=== PATIENT | male | born 1985 | race Caucasian/White ===

== ENCOUNTER 2020-04-25 19:48 | Inpatient (IN) | payer MEDICAID, OTHER ==
[~2020-04-25] VITALS: Ht 167.6 cm; Wt 80.2 kg
[2020-04-25] MEDS ORDERED: SODIUM CHLORIDE 0.9% 1,000 ML IVB ONE (20:03)
[2020-04-25] MEDS ORDERED: LORazepam 2MG/ML-1ML VIAL IV ONE ×3 (20:15→23:15)
[2020-04-25 21:25] LABS: Urine Bacteria NONE SEEN /hpf (None Seen); Urine Blood 1+ /uL (Negative); Urine Hyaline Cast FEW /lpf (0 - 2); Urine Mucus FEW (None Seen); Urine Specific Gravity 1.015 (1.001-1.035); Urine Sperm PRESENT /hpf (None Seen); Urine WBC 3 /hpf (0 - 3)
[2020-04-25 21:36] LABS: Basophils # (auto) 0.1 10 ^3/uL (0-0.2); Basophils % (auto) 0.9 % (0.0-2.0); Eosinophils # (auto) 0 10 ^3/uL (0-0.8); Hemoglobin 15.4 g/dL (13.5-17.5); Lymphocytes # (auto) 0.9 10 ^3/uL (0.4-5.4); Lymphocytes % (auto) 7.2 % (10.0-50.0); Mean Corpuscular Hemoglobin 30.5 pg (28.0-32.0); Mean Corpuscular Hgb Conc. 34.3 g/dL (32.0-36.0); Mean Corpuscular Volume 89.1 fL (80.0-100.0); Monocytes # (auto) 1.3 10 ^3/uL (0-1.3); Monocytes % (auto) 9.9 % (0.0-12.0); Neutrophils # (auto) 10.8 10 ^3/uL (1.6-8.6); Nucleated Red Blood Cells % 0.1 %; Platelet Count (auto) 265 10^3/uL (140-450); Red Blood Cells 5.05 10^6/uL (4.5-5.90); Red Cell Distribution Width 13.6 % (11.8-14.3); White Blood Cell 13.1 10^3/uL (4.4-10.8)
[2020-04-25 21:38] LABS: Amphetamine Screen, Urine POSITIVE (NEGATIVE); Barbiturate Scree,Urine NEGATIVE (NEGATIVE); Benzodiazephine Screen, Urine NEGATIVE (NEGATIVE); Cannabinoid Screen, Urine NEGATIVE (NEGATIVE); Cocaine Screen, Urine NEGATIVE (NEGATIVE); Opiate Scree,Urine NEGATIVE (NEGATIVE); Phencyclidine Screen, Urine NEGATIVE (NEGATIVE)
[2020-04-25 21:55] LABS: Alanine Aminotransferase 26 U/L (16-61); Albumin 4.8 g/dL (3.4-5.0); Anion Gap 12 (5-15); Blood Urea Nitrogen 29 mg/dL (7-18); Calcium 9.8 mg/dL (8.5-10.1); Carbon Dioxide 22 mmol/L (21-32); Chloride 99 mmol/L (98-107); Glucose 110 mg/dL (74-106); Magnesium 2.4 mg/dL (1.6-2.6); Potassium 3.6 mmol/L (3.5-5.1); Sodium 133 mmol/L (136-145)
[2020-04-25 22:12] LABS: Alkaline Phosphatase 80 U/L (45-117); Aspartate Aminotransferase 46 U/L (15-37); BUN/Creatinine Ratio 10.5; Bilirubin, Total 1.6 mg/dL (0.2-1.0); Creatine Kinase IFCC 2592 U/L (39-308); GFR African American 34 mL/min; GFR Non-African American 28 mL/min; Total Protein 8.4 g/dL (6.4-8.2)
[2020-04-25 22:41] LABS: Blood Alcohol < 3.0 mg/dL (0-5)
[2020-04-25] MEDS ORDERED: SODIUM CHLORIDE 0.9% 1,000 ML IV ONE ×2 (23:45)
[2020-04-26] MEDS ORDERED: LORazepam 2MG/ML-1ML VIAL IV ONE (01:30)
[2020-04-26 07:44] LABS: Chloride 106 mmol/L (98-107); Potassium 3.4 mmol/L (3.5-5.1); Sodium 137 mmol/L (136-145)
[2020-04-26 07:51] LABS: Alanine Aminotransferase 28 U/L (16-61); Albumin 3.7 g/dL (3.4-5.0); Alkaline Phosphatase 70 U/L (45-117); Anion Gap 4 (5-15); Aspartate Aminotransferase 75 U/L (15-37); BUN/Creatinine Ratio 17.9; Bilirubin, Total 1.7 mg/dL (0.2-1.0); Blood Alcohol < 3.0 mg/dL (0-5); Blood Urea Nitrogen 26 mg/dL (7-18); Calcium 8.2 mg/dL (8.5-10.1); Carbon Dioxide 27 mmol/L (21-32); GFR African American 71 mL/min; GFR Non-African American 59 mL/min; Glucose 93 mg/dL (74-106); Total Protein 7.1 g/dL (6.4-8.2)
[2020-04-26] MEDS ORDERED: HALOPERIDOL LACTATE 5 MG/ML INJ VIAL IM ONE (10:00)
[2020-04-26] MEDS ORDERED: SODIUM CHLORIDE 0.9% 1,000 ML IV ONE (13:15)
[2020-04-26] MEDS ORDERED: NITROGLYCERIN 0.4 MG SL TAB SL PRN (13:30)
[2020-04-26] MEDS ORDERED: POTASSIUM EFFERVESENT TAB 25 MEQ PO ONE (13:30)
[2020-04-26] MEDS ORDERED: OLANZapine 5 MG TAB PO ONE (13:30)
[2020-04-26] MEDS ORDERED: MORPHINE SULF INJ 2 MG/ML SYRINGE 1ML IV PRN (13:30)
[2020-04-26] MEDS: SODIUM CHLORIDE 0.9% 1,000 ML IV SCH ×2 (14:15→21:09)
[2020-04-27] MEDS: SODIUM CHLORIDE 0.9% 1,000 ML IV SCH ×3 (03:56→22:14)
[2020-04-27] MEDS: OLANZapine 5 MG TAB PO SCH (10:07)
[2020-04-27 10:30] VITALS: BP 101/49
--- NOTE | 2020-04-27 10:30 | NUR ---
Telemetry admit from ER GUS DUBOIS admitted to Telemetry unit after SBAR received. Patient oriented to josefina RAM RN, unit, room, bed, and unit policies regarding patient care and visiting hours. Patient now on continuous telemetry monitoring, tele box #69 and telemetry reading on arrival to unit is Sinus rhythm 65bpm. Patient placed on room air, weighed by bedscale and encouraged to call if they need something. All questions and concerns addressed, patient verbalized understanding.
--- NOTE | 2020-04-27 14:40 | NUR ---
Dr. Hardin at bed side assessing patient. New orders received and verified. Will implement.
[2020-04-27 14:46] LABS: Basophils # (auto) 0 10 ^3/uL (0-0.2); Basophils % (auto) 0.6 % (0.0-2.0); Eosinophils # (auto) 0.2 10 ^3/uL (0-0.8); Eosinophils % (auto) 4.6 % (0.0-7.0); Hematocrit 37.6 % (41.0-53.0); Hemoglobin 13.2 g/dL (13.5-17.5); Lymphocytes # (auto) 1.6 10 ^3/uL (0.4-5.4); Lymphocytes % (auto) 29.8 % (10.0-50.0); Mean Corpuscular Hemoglobin 31.2 pg (28.0-32.0); Mean Corpuscular Volume 89.2 fL (80.0-100.0); Monocytes # (auto) 0.4 10 ^3/uL (0-1.3); Monocytes % (auto) 7.1 % (0.0-12.0); Neutrophils # (auto) 3.1 10 ^3/uL (1.6-8.6); Neutrophils % (auto) 57.9 % (37.0-80.0); Nucleated Red Blood Cells % 0.1 %; Platelet Count (auto) 179 10^3/uL (140-450); Red Blood Cells 4.22 10^6/uL (4.5-5.90); Red Cell Distribution Width 13.6 % (11.8-14.3); White Blood Cell 5.3 10^3/uL (4.4-10.8)
--- NOTE | 2020-04-27 15:00 | NUR ---
Mercer catheter insertion Patient assessed and determined to be in need of mercer catheter. Order obtained from MD. Patient educated on catheter and reason for insertion. All questions answered. Mercer catheter 16 guage Bengali inserted with clean sterile technique. Patient tolerated well.
[2020-04-27 15:06] VITALS: BP 101/49
[2020-04-27 15:07] LABS: Potassium 4.3 mmol/L (3.5-5.1)
[2020-04-27 15:19] LABS: BUN/Creatinine Ratio 20.2; Bilirubin, Total 0.6 mg/dL (0.2-1.0); Calcium 7.9 mg/dL (8.5-10.1); Total Protein 5.9 g/dL (6.4-8.2)
[2020-04-27 17:00] VITALS: BP 105/61
--- NOTE | 2020-04-27 17:40 | NUR ---
Per home performance laborer patient refused trop lab repeat. Will try again around 20:30.
--- NOTE | 2020-04-27 19:38 | NUR ---
Opening Shift Note Received report and assumed care of patient. Patient is awake and alert. No signs or symptoms of distress noted. Instructed patient on plan of care and to call for assistance as needed. Sitter at bedside. Will continue to monitor.
[2020-04-27 22:00] VITALS: BP 101/46
--- NOTE | 2020-04-27 22:05 | NUR ---
IV removal/insertion 18g IV to the Left AC is reddened. Discontinued IV with clean technique, catheter tip fully intact. Pressure dressing applied to site. NOTE: Inserted 18g IV to the Right forearm. Patient tolerated well.
--- NOTE | 2020-04-28 00:08 | NUR ---
Changes in Heart Rhythm Telemetry strips show patient's heart rate in sinus arrhythmia. Patient's heart rate changes with beats with inverted P waves and beats with no P waves. Patient's vital signs within normal limits, patient denies any symptoms. Performed EKG, signed by . New order for cardiology consult, order read back and verified. Will carry out and continue to monitor.
[2020-04-28] MEDS: SODIUM CHLORIDE 0.9% 1,000 ML IV SCH ×5 (03:26→22:26)
[2020-04-28 05:00] VITALS: BP 110/66
[2020-04-28 06:01] LABS: Basophils # (auto) 0 10 ^3/uL (0-0.2); Basophils % (auto) 0.7 % (0.0-2.0); Eosinophils # (auto) 0.3 10 ^3/uL (0-0.8); Eosinophils % (auto) 5.8 % (0.0-7.0); Hematocrit 37.7 % (41.0-53.0); Lymphocytes # (auto) 1.7 10 ^3/uL (0.4-5.4); Lymphocytes % (auto) 33.1 % (10.0-50.0); Mean Corpuscular Hemoglobin 30.9 pg (28.0-32.0); Mean Corpuscular Hgb Conc. 34.5 g/dL (32.0-36.0); Mean Corpuscular Volume 89.7 fL (80.0-100.0); Monocytes # (auto) 0.4 10 ^3/uL (0-1.3); Monocytes % (auto) 6.8 % (0.0-12.0); Neutrophils # (auto) 2.8 10 ^3/uL (1.6-8.6); Neutrophils % (auto) 53.6 % (37.0-80.0); Nucleated Red Blood Cells % 0.1 %; Platelet Count (auto) 176 10^3/uL (140-450); Red Cell Distribution Width 13.6 % (11.8-14.3); White Blood Cell 5.2 10^3/uL (4.4-10.8)
[2020-04-28 06:16] LABS: Potassium 4.1 mmol/L (3.5-5.1)
[2020-04-28 06:38] LABS: Albumin 2.8 g/dL (3.4-5.0); BUN/Creatinine Ratio 19.5; Bilirubin, Total 0.4 mg/dL (0.2-1.0); Magnesium 2.2 mg/dL (1.6-2.6); Total Protein 5.6 g/dL (6.4-8.2)
--- NOTE | 2020-04-28 07:00 | NUR ---
Input and Output Total input: 4460ml Total output: 3700ml
[2020-04-28 09:00] VITALS: BP 101/65
[2020-04-28] MEDS: POTASSIUM CHL 20 Meq TABLET PO SCH (09:37)
[2020-04-28] MEDS: OLANZapine 5 MG TAB PO SCH (09:37)
[2020-04-28 13:00] VITALS: BP 97/57
--- NOTE | 2020-04-28 14:25 | NUR ---
Dr. Oviedo at bed side. New orders received. Will carry out
--- NOTE | 2020-04-28 15:52 | NUR ---
Mercer catheter dc'd Order to discontinue mercer catheter. Mercer dc'd with clean technique following deflation of balloon. Patient tolerated well with no complaints of pain. Continue care.
[2020-04-28 17:00] VITALS: BP 102/64
--- NOTE | 2020-04-28 19:40 | NUR ---
Opening Shift Note Received report and assumed care of patient. Patient is awake and alert. No signs or symptoms of distress noted, patient currently denies pain. Instructed patient on plan of care and to call for assistance as needed. Sitter at bedside. Will continue to monitor.
[2020-04-28 22:01] VITALS: BP 113/67
[2020-04-29] MEDS: SODIUM CHLORIDE 0.9% 1,000 ML IV SCH ×4 (03:54→15:45)
[2020-04-29 05:01] VITALS: BP 113/67
--- NOTE | 2020-04-29 06:29 | NUR ---
Leo Hospitalist Patient's potassium level 2.9. Leo Burnett, awaiting call back. Addendum: 04/29/20 at 0828 by AYO PEDROZA RN RN Incorrect Patient
[2020-04-29 06:40] LABS: Basophils # (auto) 0 10 ^3/uL (0-0.2); Basophils % (auto) 0.7 % (0.0-2.0); Eosinophils # (auto) 0.3 10 ^3/uL (0-0.8); Eosinophils % (auto) 6.1 % (0.0-7.0); Hemoglobin 13.1 g/dL (13.5-17.5); Lymphocytes # (auto) 1.9 10 ^3/uL (0.4-5.4); Lymphocytes % (auto) 36.3 % (10.0-50.0); Mean Corpuscular Hemoglobin 31.5 pg (28.0-32.0); Mean Corpuscular Hgb Conc. 35.5 g/dL (32.0-36.0); Mean Corpuscular Volume 88.8 fL (80.0-100.0); Monocytes # (auto) 0.3 10 ^3/uL (0-1.3); Neutrophils # (auto) 2.6 10 ^3/uL (1.6-8.6); Neutrophils % (auto) 50.9 % (37.0-80.0); Nucleated Red Blood Cells % 0.1 %; Platelet Count (auto) 181 10^3/uL (140-450); Red Blood Cells 4.16 10^6/uL (4.5-5.90); Red Cell Distribution Width 13.3 % (11.8-14.3); White Blood Cell 5.1 10^3/uL (4.4-10.8)
[2020-04-29 06:55] LABS: INR 1.01 (0.9-1.15); Partial Thromboplastin Time 25.4 sec (23.64-32.05)
[2020-04-29 07:00] LABS: Potassium 4.2 mmol/L (3.5-5.1)
[2020-04-29 07:11] LABS: Albumin 2.9 g/dL (3.4-5.0); Bilirubin, Total 0.4 mg/dL (0.2-1.0); Magnesium 2.2 mg/dL (1.6-2.6); Phosphorus 3.3 mg/dL (2.5-4.90); Total Protein 5.7 g/dL (6.4-8.2)
[2020-04-29 09:00] VITALS: BP 104/59
[2020-04-29] MEDS: POTASSIUM CHL 20 Meq TABLET PO SCH (10:31)
[2020-04-29] MEDS: OLANZapine 5 MG TAB PO SCH (10:31)
[2020-04-29 13:00] VITALS: BP 107/71
--- NOTE | 2020-04-29 14:22 | NUR ---
Nutrition Assessment Notes Please refer to link for full assessment notes. Est Energy needs: 6058-2763 kcals (20-23 kcal/kgBW) Est Protein needs: 63-79 gms/day (0.8-1.0 gm/kgBW) Will continue to monitor and reassess prn. Addendum: 04/29/20 at [address] Amended: Links added.
--- NOTE | 2020-04-29 16:58 | NUR ---
Assessment Patient is a 34-year-old male who is alert and oriented. Per patient he is homeless and has been living in the streets. Patient stated he has been contacting different homeless chcf and has no luck being placed. Discussed with patient how to obtain service through the [facility] and local [facility]. Provided patient with community resources and offered him with taxi voucher within 30 miles and patient agreed. Patient accepted resources. Patient stated he will make his own arrangements using the resources provided. Provided information to clothes closet and meal prior to discharge. Completed homeless assessment and patient signed homeless waiver. Informed MONCHO Morrison. Addendum: 04/29/20 at 1700 by NIEVES FAN Amended: Links added.
[2020-04-29 17:00] VITALS: BP 105/66
[2020-04-29 21:43] VITALS: BP 111/83
--- NOTE | 2020-04-30 00:37 | NUR ---
PATIENT BEGAN TO BECOME AGITATED. HE STATED THAT I KNOW I HAVE PSYCHOSIS AND ITS HARD FOR ME TO BELIEVE PEOPLE AND WHAT THEY TELL ME. HE ASKED REPEATEDLY AND I GOING TO GROUP HOME. I EXPLAINED TO HIM THAT HE WILL NOT BE GOING TO GROUP HOME HE HAS DONE NOTHING TO THIS POINT TO GO TO GROUP HOME. HE LOPEZ ALREADY TAKEN OFF HIS TELE BOX AND WAS ASKING TO TAKE OFF HIS IV FLUIDS. I WAS ABLE TO GET HIM TO UNDERSTAND THAT HE WILL NOT BE GOING TO GROUP HOME. HE AGREED TO PUT THE IV FLUIDS BACK ON WELL THE TELE BOX. WILL CONTINUE TO MONITOR.
[2020-04-30] MEDS: SODIUM CHLORIDE 0.9% 1,000 ML IV SCH ×2 (01:45→11:45)
[2020-04-30 05:00] VITALS: BP 100/62
[2020-04-30 08:30] VITALS: BP 109/75
--- NOTE | 2020-04-30 09:30 | NUR ---
CLOTHES PROVIDED PATIENT WITH A SET OF CLOTHING, SHOES, SOCKS AND A SWEATER.
[2020-04-30] MEDS: OLANZapine 5 MG TAB PO SCH (10:00)
--- NOTE | 2020-04-30 10:45 | NUR ---
BUS PASS PATIENT REQUESTED BUS PASS FOR [facility]; REFUSED A TAXI.
--- NOTE | 2020-04-30 11:30 | NUR ---
FOOD PATIENT REQUESTED A SANDWICH AND JUICE UPON DISCHARGE THIS RN TO PROVIDE.
--- NOTE | 2020-04-30 13:22 | NUR ---
Discharge instructions given as ordered. Encourage to follow up with PMD as instructed. All questions and concerns addressed. Patient verbalized understanding. Medication reconciliation form completed and copy given to patient. IV removed with catheter intact, pressure dressing applied, Telemetry unit returned to ICU. [facility] and [facility]. No distress noted at time of departure. Addendum: 04/30/20 at 1326 by JUAN MEDRANO RN PATIENT REFUSED TO WAIT FOR DISCHARGE TO PRINT AND DID NOT SIGN FOR PAPERWORK.
== END 2020-04-30 14:30 | disposition home or self-care (01) | DRG 812 ==
LOC: ER 19:50 → TELE 19:51 → TELE-WESTW 04-27 12:30
PROVIDERS: ADMIT Internal Medicine; ATTEND Internal Medicine
DX: T43.621A Poisoning by amphetamines, accidental (unintentional), initial encounter (principal); N17.0 Acute kidney failure with tubular necrosis; G92 Toxic encephalopathy; M62.82 Rhabdomyolysis; R65.10 Systemic inflammatory response syndrome (SIRS) of non-infectious origin without acute organ dysfunction; F20.9 Schizophrenia, unspecified; E87.6 Hypokalemia; F10.10 Alcohol abuse, uncomplicated; F41.0 Panic disorder [episodic paroxysmal anxiety]; F17.210 Nicotine dependence, cigarettes, uncomplicated; D72.829 Elevated white blood cell count, unspecified; Z03.818 Encounter for observation for suspected exposure to other biological agents ruled out; Z59.0 Homelessness; Z71.51 Drug abuse counseling and surveillance of drug abuser; F15.10 Other stimulant abuse, uncomplicated; Z71.41 Alcohol abuse counseling and surveillance of alcoholic
CPT/HCPCS: 36415; 71045; 80053; 80307; 80320; 81001; 82085; 82550; 83735; 84100; 84146; 84484; 85025; 85610; 85730; 87070; 87804; 87880; 93005; G0378